=== PATIENT | male | born 1985 | race American Indian/Alaskan Native ===

== ENCOUNTER 2018-05-14 14:00 | Emergency (ER) | payer SELFPAY ==
[2018-05-14 14:20] VITALS: BP 172/112
[2018-05-14 16:29] LABS: Basophils # (Auto) 0.1 K/mm3 (0.0-0.1); Basophils % (Auto) 1.3 % (0.0-1.8); Eosinophils # (Auto) 0.3 K/mm3 (0.0-0.4); Eosinophils % (Auto) 4.8 % (0.0-4.3); Hematocrit 44.6 % (35.5-45.6); Hemoglobin 14.5 gm/dl (11.8-15.2); Lymphocytes # (Auto) 2.7 K/mm3 (1.2-5.4); Mean Corpuscular HGB Conc 33 % (32-34); Mean Corpuscular Volume 79 fl (84-94); Monocytes # (Auto) 0.6 K/mm3 (0.0-0.8); Monocytes % (Auto) 8.7 % (0.0-7.3); Platelet Count 247 K/mm3 (140-440); Red Blood Count 5.66 M/mm3 (3.65-5.03); Red Cell Distribution Width 15.9 % (13.2-15.2)
--- NOTE | 2018-05-14 16:31 | Emergency Department Report ---
ED Chest Pain HPI - General Chief Complaint: Chest Pain Stated Complaint: CHEST PAIN/RT ARM PAIN Time Seen by Provider: 05/14/18 16:02 Source: patient Mode of arrival: Ambulatory Limitations: No Limitations - History of Present Illness Initial Comments: 32-year-old male with pain 4 years. States pain is usually after eating, but lately been experiencing pain when just lying in bed. States pain is left sided , sharp and burning in nature. States pain is relieved with Zantac, but has been increasing that dose lately to get relief. Denies nausea, vomiting, diaphoresis, leg pain or swelling. Patient also reports pain and slight swelling to the anterior surface of the right forearm. Thinks possibly due to overuse from work. Patient reports tobacco and occasional alcohol use. Denies having a PCP MD Complaint: chest pain -: year(s) (4) Onset: during rest, after eating Pain Location: left chest, epigastric Pain Radiation: none Severity: moderate Quality: sharp, other (burning) Consistency: intermittent Improves With: other (zantac) Worsens With: nothing, eating re: denies: nausea, vomting, diaphoresis, dyspnea Other Symptoms: denies: cough, fever, leg swelling - Related Data Previous Rx's Medication Instructions Recorded Last Taken Type Esomeprazole Magnesium [Nexium] 40 mg PO DAILY #30 capsule. 05/14/18 Unknown Rx hydroCHLOROthiazide [Hctz] 12.5 mg PO QDAY 30 Days capsule 05/14/18 Unknown Rx Allergies Allergy/AdvReac Type Severity Reaction Status Date / Time No Known Allergies Allergy Unverified 05/14/18 14:20 Heart Score - HEART Score History: Slightly suspicious EKG: Normal Age: < 45 Risk factors: 1-2 risk factors Troponin: < normal limit HEART Score: 1 - Critical Actions Critical Actions: 0-3 pts:0.9-1.7%risk of adverse cardiac event.Candidate for discharge ED Review of Systems ROS: Stated complaint: CHEST PAIN/RT ARM PAIN Other details as noted in HPI Comment: All other systems reviewed and negative Constitutional: denies: chills, fever Respiratory: denies: cough, shortness of breath Cardiovascular: chest pain Gastrointestinal: denies: nausea, vomiting Musculoskeletal: other (denies leg pain and swelling) ED Past Medical Hx - Past Medical History Previous Medical History?: No - Surgical History Past Surgical History?: Yes Additional Surgical History: HERNIA REPAIR - Social History Smoking Status: Never Smoker Substance Use Type: Alcohol, Marijuana - Medications Home Medications: Home Medications Medication Instructions Recorded Confirmed Last Taken Type Esomeprazole Magnesium [Nexium] 40 mg PO DAILY #30 capsule. 05/14/18 Unknown Rx hydroCHLOROthiazide [Hctz] 12.5 mg PO QDAY 30 Days capsule 05/14/18 Unknown Rx ED Physical Exam - General Limitations: No Limitations General appearance: alert, in no apparent distress - Head Head exam: Present: atraumatic, normocephalic - Eye Eye exam: Present: normal appearance - ENT ENT exam: Present: mucous membranes moist - Neck Neck exam: Present: normal inspection - Respiratory Respiratory exam: Present: normal lung sounds bilaterally. Absent: respiratory distress - Cardiovascular Cardiovascular Exam: Present: regular rate, normal rhythm - GI/Abdominal GI/Abdominal exam: Present: soft. Absent: distended, tenderness - Extremities Exam Extremities exam: Present: other (mild tenderness to right anterior forearm and wrist, no swelling noted). Absent: pedal edema, calf tenderness - Neurological Exam Neurological exam: Present: alert, oriented X3 - Psychiatric Psychiatric exam: Present: normal affect, normal mood - Skin Skin exam: Present: warm, dry, intact, normal color. Absent: rash ED Course Vital Signs 05/14/18 14:15 Temperature 98.1 F Pulse Rate 80 Respiratory 16 Rate Blood Pressure 172/112 O2 Sat by Pulse 100 Oximetry ED Medical Decision Making - Lab Data Result diagrams: 05/14/18 16:17 05/14/18 16:17 - EKG Data -: EKG Interpreted by Me EKG shows normal: sinus rhythm, axis, intervals, QRS complexes, ST-T waves Rate: normal - EKG Data Interpretation: no acute changes - Radiology Data Radiology results: report reviewed - Medical Decision Making 33-year-old male with sharp burning chest pain for 4 years, worsening over recent months. Patient reports this pain is usually after eating and relieved with Zantac. However patient reports he has been using increasing doses to obtain relief. Workup today is unremarkable. EKG, troponin, chest x-ray negative. He has heart score of 1. With patient regarding diet, tobacco, and ETOH usage as it relates to GERD and risk of heart disease. BP also elevated at this time, so will start patient on antihypertensive. Patient will be given GI and PCP follow-up. Return precautions given - Differential Diagnosis GERD, ACS, pancreatitis Critical care attestation.: If time is entered above; I have spent that time in minutes in the direct care of this critically ill patient, excluding procedure time. ED Disposition Clinical Impression: Chest pain, GERD (gastroesophageal reflux disease), Essential hypertension Disposition: TO HOME OR SELFCARE Is pt being admited?: No Condition: Stable Instructions: Chest Pain (ED), Diet for Ulcers and Gastritis (ED), Gastroesophageal Reflux Disease (ED), Hypertension (ED) Prescriptions: Esomeprazole Magnesium [Nexium] 40 mg PO DAILY #30 capsule. hydroCHLOROthiazide [Hctz] 12.5 mg PO QDAY 30 Days capsule Referrals: [facility] [Provider Group] - 3-5 Days [facility] [Provider Group] - 3-5 Days Time of Disposition: 17:20
[2018-05-14 16:38] LABS: Mean Corpuscular Hemoglobin 26 pg (28-32)
[2018-05-14 17:00] LABS: Alanine Aminotransferase 27 units/L (7-56); Albumin 4.2 g/dL (3.9-5); BUN/Creatinine Ratio 8; Blood Urea Nitrogen 8 mg/dL (9-20); Calcium 8.9 mg/dL (8.4-10.2); Hemolysis Index 4; Lipase 33 units/L (13-60)
--- NOTE | 2018-05-14 17:04 | XRay Report ---
FINAL REPORT EXAM: XR CHEST ROUTINE 2V HISTORY: chest pain TECHNIQUE: PA and lateral views of the chest Comparison: None FINDINGS: There is no evidence of focal infiltrate, pneumothorax or pleural fluid collection. The cardiomediastinal silhouette is normal in appearance. The bony structures are unremarkable. IMPRESSION: 1. No evidence of an acute pulmonary process.
== END 2018-05-14 17:33 | disposition home or self-care (01) ==
LOC: ED 14:00
DX: K21.9 Gastro-esophageal reflux disease without esophagitis (principal); R07.89 Other chest pain; I10 Essential (primary) hypertension; R22.31 Localized swelling, mass and lump, right upper limb; F12.10 Cannabis abuse, uncomplicated
CPT/HCPCS: 36415; 71046; 80053; 83690; 84484; 85025; 93005; 93010